=== PATIENT | male | born 1955 | race Caucasian/White ===

== ENCOUNTER 2017-04-17 15:55 | Emergency (ER) | payer OTHER ==
[2017-04-17 16:05] VITALS: BP 128/79; PULSE 92; TEMP 97.9; O2SAT 93
--- NOTE | 2017-04-17 16:30 | ED PDOC ---
Lower Extremity Pain/Injury Time Seen by Provider: 04/17/17 16:09 Chief Complaint (Nursing): Lower Extremity Problem/Injury Chief Complaint (Provider): Lower leg swelling History Per: Patient History/Exam Limitations: no limitations Onset/Duration Of Symptoms: Days (x 2) Additional Complaint(s): Rodri Leon is a 62-year-old male with a past medical history of hypertension who was sent to the ED by his PMD for further evaluation of bilateral lower leg swelling, increasing since onset 48 hours ago. The swelling involves his feet, ankles, and lower legs. The patient denies calf pain, numbness, injury, trauma, Shortens of breath, chest pain, cough, and fever. His surgical history includes left lung surgery for hemothorax and exploratory thoracotomy. He is a former smoker and drinks rarely. PMD: Dr. Levine Past Medical History Reviewed: Historical Data, Nursing Documentation, Vital Signs Vital Signs: Last Vital Signs Temp 97.9 F 04/17/17 16:00 Pulse 92 H 04/17/17 16:00 Resp 18 04/17/17 16:00 BP 128/79 04/17/17 16:00 Pulse Ox 93 L 04/17/17 16:00 - Medical History PMH: Asthma, HTN, Pneumonia (1981, Right lower lung field) Denies: Chronic Kidney Disease - Surgical History Surgical History: Tonsillectomy - Family History Family History: States: Unknown Family Hx - Social History Current smoker - smoking cessation education provided: No Ex-Smoker (has not smoked in the last 12 months): Yes Alcohol: Occasional - Home Medications Home Medications: Ambulatory Orders Medication Instructions Recorded ALPRAZolam [Xanax] 1 mg PO HS PRN 04/17/17 Albuterol HFA [Ventolin HFA 90 2 puff IH Q4H PRN 04/17/17 mcg/actuation (8 g)] Furosemide [Lasix] 20 mg PO DAILY #3 tab 04/17/17 Metoprolol Succinate [Toprol XL] 50 mg PO DAILY 04/17/17 Potassium Chloride 10 meq PO DAILY #3 tab.er.prt 04/17/17 - Allergies Allergies/Adverse Reactions: Allergies Allergy/AdvReac Type Severity Reaction Status Date / Time No Known Allergies Allergy Verified 10/09/14 15:56 Review of Systems ROS Statement: Except As Marked, All Systems Reviewed And Found Negative Constitutional: Negative for: Fever Cardiovascular: Positive for: Edema (Bilateral lower legs). Negative for: Chest Pain Respiratory: Negative for: Cough, Shortness of Breath Neurological: Negative for: Numbness, Other (Injury) Physical Exam - Reviewed Nursing Documentation Reviewed: Yes Vital Signs Reviewed: Yes - Physical Exam Appears: Positive for: Well, Non-toxic, No Acute Distress Head Exam: Positive for: ATRAUMATIC, NORMAL INSPECTION, NORMOCEPHALIC Skin: Positive for: Normal Color, Warm, Dry. Negative for: Rash Eye Exam: Positive for: EOMI, Normal appearance, PERRL ENT: Positive for: Normal ENT Inspection Neck: Positive for: Normal, Painless ROM, Supple Cardiovascular/Chest: Positive for: Regular Rate, Rhythm, Chest Non Tender Respiratory: Positive for: Normal Breath Sounds (Clear to auscultation bilaterally). Negative for: Wheezing, Respiratory Distress Pulses-Dorsalis Pedis (R): 2+ Pulses-Femoral (L): 2+ Gastrointestinal/Abdominal: Positive for: Normal Exam, Bowel Sounds, Soft. Negative for: Tenderness Back: Positive for: Normal Inspection. Negative for: Vertebral Tenderness Extremity: Positive for: Normal ROM, Pedal Edema (bilateral lower leg 2+ pitting edema). Negative for: Tenderness, Calf Tenderness, Deformity Lymphatic: Negative for: Adenopathy Neurologic/Psych: Positive for: Alert, Oriented. Negative for: Motor/Sensory Deficits - Laboratory Results Result Diagrams: 04/17/17 16:42 04/17/17 16:42 - ECG O2 Sat by Pulse Oximetry: 93 (RA) Pulse Ox Interpretation: Other (Low normal) Medical Decision Making Medical Decision Making: Initial Impression: Lower leg bilateral edema Differentials include but are not limited to: DVT, heart failure, kidney disease , liver disease, and dependent edema Initial Plan: * Labs * Ultrasound lower extremity vein bilateral * Reevaluation Scribe Attestation: Documented by Terri Jha, acting as a scribe for Mabel Avendano MD. Provider Scribe Attestation: All medical record entries made by the Scribe were at my direction and personally dictated by me. I have reviewed the chart and agree that the record accurately reflects my personal performance of the history, physical exam, medical decision making, and the department course for this patient. I have also personally directed, reviewed, and agree with the discharge instructions and disposition. Disposition - Clinical Impression Clinical Impression: Edema leg Discussed With : Kurtis Levine Doctor Will See Patient In The: Office Counseled Patient/Family Regarding: Studies Performed, Diagnosis, Need For Followup, Rx Given - Disposition Referrals: Kurtis Levine MD [Family Provider] - 04/20/17 (PLEASE FOLLOW UP WITH DR LEVINE NEXT WEEK FOR REEVALUATION) Disposition: Routine/Home Disposition Time: 18:00 Condition: STABLE Prescriptions: Furosemide [Lasix] 20 mg PO DAILY #3 tab Potassium Chloride 10 meq PO DAILY #3 tab.er.prt Instructions: Leg Edema (ED)
[2017-04-17 16:47] LABS: BASO # 0.1 K/uL (0.0-0.2); BASO % 2.2 % (0.0-2.0); EOS # 0.4 K/uL (0.0-0.7); EOS % 7.8 % (0.0-4.0); HEMOGLOBIN 14.1 g/dL (12.0-18.0); LYMPH # 1.7 K/uL (1.0-4.3); LYMPH % 33.1 % (20.0-40.0); MEAN CELL VOLUME 88.3 fl (80.0-94.0); MEAN CORPUSCULAR HEMOGLOBIN 29.6 pg (27.0-31.0); MEAN CORPUSCULAR HGB CONC 33.5 g/dL (33.0-37.0); MEAN PLATELET VOLUME 7.9 fl (7.2-11.7); MONO # 0.4 K/uL (0.0-0.8); MONO % 8.4 % (0.0-10.0); NEUT # 2.5 K/uL (1.8-7.0); NEUT % 48.5 % (50.0-75.0); RBC 4.78 Mil/uL (4.40-5.90); WHITE BLOOD COUNT 5.1 K/uL (4.8-10.8)
[2017-04-17 17:07] LABS: B-TYPE NATRIURETIC PEPTIDE 22.7 pg/ml (0-900)
[2017-04-17 17:13] LABS: ALB/GLOB RATIO 1.7 (1.0-2.1); ALBUMIN 4.2 g/dL (3.5-5.0); ALT/SGPT 57 U/L (21-72); AST/SGOT 28 U/L (17-59); BLOOD UREA NITROGEN 16 mg/dl (9-20); CALCIUM 9.3 mg/dL (8.4-10.2); GFR AFRICAN-AMERICAN > 60; GFR NON-AFRICAN AMERICAN > 60; MAGNESIUM 2.2 MG/DL (1.6-2.3)
--- NOTE | 2017-04-17 18:52 | US ---
PROCEDURE: Bilateral lower extremity venous duplex Doppler. HISTORY: leg swelling r/o DVT COMPARISON: None available. TECHNIQUE: Bilateral common femoral, superficial femoral, popliteal and posterior tibial veins were evaluated. Flow was assessed with color Doppler, compressibility, assessment of phasic flow and augmentation response. FINDINGS: COMMON FEMORAL VEIN: Right CFV: Unremarkable. Left CFV: Unremarkable. SUPERFICIAL FEMORAL VEIN: Right SFV: Unremarkable. Left SFV: Unremarkable. POPLITEAL VEIN: Right Popliteal: Unremarkable. Left Popliteal: Unremarkable. POSTERIOR TIBIAL VEIN: Right PTV: Unremarkable. Left PTV: Unremarkable. OTHER FINDINGS: None. IMPRESSION: No evidence of deep venous thrombosis in the right or left lower extremity.
[2017-04-17 19:10] VITALS: RESP 16
== END 2017-04-17 19:05 | disposition home or self-care (01) ==
LOC: H.ER 15:55
DX: R60.0 Localized edema (principal); I10 Essential (primary) hypertension; J45.909 Unspecified asthma, uncomplicated; Z87.891 Personal history of nicotine dependence

== ENCOUNTER 2017-07-07 10:06 | Observation (INO) | payer OTHER ==
--- NOTE | 2017-07-07 11:26 | ED PDOC ---
HPI: Back Time Seen by Provider: 07/07/17 10:24 Chief Complaint (Nursing): Back Pain Chief Complaint (Provider): Back Pain History Per: Patient History/Exam Limitations: no limitations Onset/Duration Of Symptoms: Days (x2) Current Symptoms Are (Timing): Still Present Additional Complaint(s): Rodri Leon is a 62 year old male with previous medical history of hypertension, depression and asthma, who presents to the emergency department with a complaint of worsening severe lower back pain exasperated with movement ongoing for 2 days. Denied fever, chills, radiation of pain or further medical complaints. Patient stated he has chronic back pain from past injury with no surgeries and has pain management with Dr. Oliveira, who recommend him to go to ED for further work up today. PMD: none provided Past Medical History Reviewed: Historical Data, Nursing Documentation, Vital Signs Vital Signs: Last Vital Signs Temp 97.4 F L 07/07/17 10:16 Pulse 92 H 07/07/17 10:16 Resp 20 07/07/17 10:16 BP 145/91 H 07/07/17 10:16 Pulse Ox 98 07/07/17 10:23 - Medical History PMH: Anxiety, Asthma, HTN, Pneumonia (1982, Right lower lung field) Denies: Chronic Kidney Disease - Surgical History Surgical History: Tonsillectomy - Family History Family History: States: No Known Family Hx - Social History Current smoker - smoking cessation education provided: Yes Ex-Smoker (has not smoked in the last 12 months): No Alcohol: Occasional Drugs: Denies - Home Medications Home Medications: Ambulatory Orders Medication Instructions Recorded ALPRAZolam [Xanax] 1 mg PO BID PRN 04/17/17 Albuterol HFA [Ventolin HFA 90 2 puff IH Q4H PRN 04/17/17 mcg/actuation (8 g)] Metoprolol Succinate [Toprol XL] 50 mg PO DAILY 04/17/17 DULoxetine [Cymbalta] 30 mg PO HS 07/07/17 Gabapentin [Neurontin] 300 mg PO TID 07/07/17 oxyCODONE/Acetaminophen [Percocet 1 tab PO TID PRN 07/07/17 5/325 mg Tab] - Allergies Allergies/Adverse Reactions: Allergies Allergy/AdvReac Type Severity Reaction Status Date / Time No Known Allergies Allergy Verified 10/09/14 15:56 Review of Systems ROS Statement: Except As Marked, All Systems Reviewed And Found Negative Constitutional: Negative for: Fever, Chills Musculoskeletal: Positive for: Back Pain (lower mid-line). Negative for: Other (radiation of pain) Physical Exam - Reviewed Nursing Documentation Reviewed: Yes Vital Signs Reviewed: Yes - Physical Exam Appears: Positive for: Well, Non-toxic, No Acute Distress Head Exam: Positive for: ATRAUMATIC, NORMAL INSPECTION, NORMOCEPHALIC Skin: Positive for: Normal Color Eye Exam: Positive for: Normal appearance, EOMI, PERRL. Negative for: Nystagmus ENT: Positive for: Normal ENT Inspection Neck: Positive for: Normal, Painless ROM, Supple. Negative for: Decreased ROM Cardiovascular/Chest: Positive for: Regular Rate, Rhythm. Negative for: Chest Non Tender Respiratory: Positive for: Normal Breath Sounds, Accessory Muscle Use. Negative for: Decreased Breath Sounds, Respiratory Distress Gastrointestinal/Abdominal: Positive for: Normal Exam, Bowel Sounds, Soft. Negative for: Tenderness Back: Positive for: Normal Inspection. Negative for: L CVA Tenderness, R CVA Tenderness Extremity: Positive for: Normal ROM. Negative for: Tenderness, Pedal Edema, Deformity Neurologic/Psych: Positive for: Alert, Oriented - Laboratory Results Result Diagrams: 07/07/17 11:31 07/07/17 11:31 - ECG O2 Sat by Pulse Oximetry: 98 (RA) Pulse Ox Interpretation: Normal Medical Decision Making Medical Decision Making: Initial Impression: Acute exacerbation of chronic low back pain Initial Plan: * BMP * CBC * PTT * PT * Morphine 4mg IVP * Pain management consult Dr Oliveira * reassess Scribe Attestation: Documented by Merlyn Lara, acting as a scribe for Shana Posey MD. Provider Scribe Attestation: All medical record entries made by the Scribe were at my direction and personally dictated by me. I have reviewed the chart and agree that the record accurately reflects my personal performance of the history, physical exam, medical decision making, and the department course for this patient. I have also personally directed, reviewed, and agree with the discharge instructions and disposition. Disposition - Clinical Impression Clinical Impression: Back pain - Patient ED Disposition Is Patient to be Admitted: Yes Discussed With DrNick: Kurtis Levine Doctor Will See Patient In The: Hospital Counseled Patient/Family Regarding: Studies Performed, Diagnosis - Disposition Disposition Time: 11:50 Condition: FAIR - Pt Status Changed To: Hospital Disposition Of: Inpatient - Admit Certification Admit to Inpatient:: After my assessment, the patient will require hospitalization for at least two midnights. This is because of the severity of symptoms shown, intensity of services needed, and/or the medical risk in this patient being treated as an outpatient. - POA Present On Arrival: None
[2017-07-07 11:40] LABS: BASO # 0.1 K/uL (0.0-0.2); BASO % 1.4 % (0.0-2.0); EOS # 0.3 K/uL (0.0-0.7); EOS % 7.4 % (0.0-4.0); HEMATOCRIT 41.3 % (35.0-51.0); LYMPH # 1.5 K/uL (1.0-4.3); LYMPH % 31.5 % (20.0-40.0); MEAN CORPUSCULAR HEMOGLOBIN 29.4 pg (27.0-31.0); MEAN PLATELET VOLUME 7.8 fl (7.2-11.7); MONO # 0.5 K/uL (0.0-0.8); MONO % 10.4 % (0.0-10.0); NEUT # 2.3 K/uL (1.8-7.0); NEUT % 49.3 % (50.0-75.0); RED CELL DISTRIBUTION WIDTH 14.5 % (11.5-14.5); WHITE BLOOD COUNT 4.6 K/uL (4.8-10.8)
[2017-07-07 11:59] LABS: PARTIAL THROMBOPLASTIN TIME 33.2 Seconds (25.6-37.1)
[2017-07-07 12:02] VITALS: RESP 18
[2017-07-07] MEDS ORDERED: MethylPREDNISolone Depo 40 mg/ml Inj ONE (12:23)
[2017-07-07] MEDS ORDERED: Iohexol 300 10 ML ONE (12:23)
[2017-07-07] MEDS ORDERED: methylPREDNISolone Depo 80 mg/ml Inj ONE (12:23)
[2017-07-07] MEDS ORDERED: Lidocaine 1% Inj (20ml) ONE (12:24)
[2017-07-07] MEDS ORDERED: Midazolam 2 MG/2 ML VIAL ONE (12:28)
[2017-07-07] MEDS ORDERED: Bupivacaine HCl 0.25% PF (30 ml) Inj ONE (12:32)
[2017-07-07] MEDS ORDERED: Lactated Ringer's 1,000 ML IV ONE (12:49)
[2017-07-07] MEDS ORDERED: Lactated Ringer's 1,000 ML IV SCH (13:00)
[2017-07-07 13:01] LABS: BLOOD UREA NITROGEN 11 mg/dl (9-20); CALCIUM 8.8 mg/dL (8.4-10.2); CARBON DIOXIDE 30 mmol/L (22-30); CHLORIDE 103 mmol/L (98-107); GFR AFRICAN-AMERICAN > 60; GLUCOSE,RANDOM 114 mg/dL (75-110); POTASSIUM 4.6 MMOL/L (3.6-5.0); SODIUM 144 mmol/l (132-148)
[2017-07-07 14:17] VITALS: BP 117/72; PULSE 74; TEMP 98.3
--- NOTE | 2017-07-07 16:41 | RAD ---
PROCEDURE: Pain management HISTORY: EPIDURAL COMPARISON: None TECHNIQUE: Standard protocol for this study/examination. FINDINGS: Total fluoroscopic time (continuous mode) utilized during the procedure: 37 seconds. Submitted images from the current procedure: 3.0. IMPRESSION: Less than 1 hr fluoroscopic time utilized during performance of the procedure.
[2017-07-07 18:15] VITALS: O2SAT 98
--- NOTE | 2017-07-08 00:25 | OP ---
PROCEDURE DATE: 07/07/2017 PREOPERATIVE DIAGNOSIS: Lumbar radiculopathy. POSTOPERATIVE DIAGNOSIS: Lumbar radiculopathy. PROCEDURE: Bilateral L5-S1 transforaminal epidural steroid injection. SURGEON: Lyubov Oliveira MD TYPE OF ANESTHESIA: Monitored anesthesia care. ANESTHESIA ADMINISTERED BY: Dr. Munoz. COMPLICATIONS: None. SPECIMEN: None. DESCRIPTION OF PROCEDURE: After re-discussion of the procedure with the patient including risks, benefits and alternative, outcome data, possibility of no effect or increased pain, the patient consented to the procedure. He denies any recent infection, bleeding tendencies or being on anticoagulants. A decision was then made to proceed to the OR. The patient was placed on a fluoroscopy table in the prone position with 2 pillows underneath his abdomen. The back was prepped and draped in the usual sterile fashion and sterile technique was adhered during the entire procedure. The L5 vertebral level was first identified in the anterior and posterior view. The patient has sacralized L5 vertebrae. The fluoroscopy was then turned towards the right at approximately 25 degrees to maximize the visualization of the right L5 pedicle. The skin overlying the 6 o' clock position of the pedicle was infiltrated with 1% lidocaine using 25-gauge needle. Subsequently, a 22-gauge 5-inch spinal needle was incrementally advanced under fluoroscopic guidance until tip of the needle lay within the intravertebral foramen. The final needle position was confirmed on the anterior and posterior view and lateral views. After satisfactory positioning of the needle, approximately 0.5 mL of Isovue contrast was injected showing appropriate epidural nerve root spread without any signs of CSF or intervenous involvement. At this point, approximately 3 mL of 0.25% Marcaine and Depo Medrol mixture was injected. The needle was then removed and same exact procedure was performed on the contralateral left side using the same medications and techniques. At the end of the case, the patient's back was clean and dry and bandage was applied. The patient was then transferred to recovery area in good conditions without any signs of INDEPENDENT TRADER toxicity or any neurological deficits. He will have a follow in our office in approximately 2-4 weeks. Lyubov Oliveira MD
== END 2017-07-07 14:40 | disposition home or self-care (01) ==
LOC: H.ER 10:06 → H.ERHOLD 11:50
PROVIDERS: ADMIT Internal Medicine; ATTEND Internal Medicine
DX: M54.16 Radiculopathy, lumbar region (principal); F17.200 Nicotine dependence, unspecified, uncomplicated; G89.29 Other chronic pain; I10 Essential (primary) hypertension; J45.909 Unspecified asthma, uncomplicated; F32.9 Major depressive disorder, single episode, unspecified; F41.9 Anxiety disorder, unspecified
CPT/HCPCS: 64483; 80048; 85025; 85610; 85730; 96374; 99284; G0378; J1030; J1040; J2250; J2270; J3010; J7120; Q9967